=== PATIENT | male | born 1985 | race Two or more races ===

== ENCOUNTER 2019-06-02 13:23 | Emergency (ER) | payer MEDICAID, OTHER ==
[~2019-06-02] VITALS: Ht 175.3 cm; Wt 75.7 kg
[2019-06-02] MEDS ORDERED: cefTRIAXone SOD 1,000 MG VL IM ONE (16:45)
[2019-06-02 16:52] VITALS: BP 118/81
== END 2019-06-02 17:18 | disposition home or self-care (01) ==
LOC: ER 13:23
DX: J20.9 Acute bronchitis, unspecified (principal); J02.9 Acute pharyngitis, unspecified; R51 Headache; F17.210 Nicotine dependence, cigarettes, uncomplicated
CPT/HCPCS: 71046; 96372; 99283; J0696